=== PATIENT | male | born 1990 | race Caucasian/White ===

== ENCOUNTER 2022-02-18 11:05 | Outpatient (CLI) | payer MEDICAID | END 2022-02-18 23:59 | disposition home or self-care (01) | LOC: CARD DIAG 11:05 | PROVIDERS: ATTEND Physician Assistant | DX: E78.2 Mixed hyperlipidemia (principal); R07.89 Other chest pain | CPT/HCPCS: 93306 ==

== ENCOUNTER 2022-02-26 08:07 | Outpatient (CLI) | payer MEDICAID ==
[2022-02-26] VITALS (17 sets, daily range): BP systolic 116–171; BP diastolic 41–108
== END 2022-02-26 23:59 | disposition home or self-care (01) ==
LOC: CARD DIAG 08:07
PROVIDERS: ATTEND Physician Assistant
DX: R42 Dizziness and giddiness (principal)
CPT/HCPCS: 93660

== ENCOUNTER 2022-06-17 08:58 | Day surgery (SDC) | payer MEDICAID ==
[~2022-06-17] VITALS: Ht 185.4 cm; Wt 145.4 kg
[2022-06-17 09:05] VITALS: BP 140/97
[2022-06-17] MEDS ORDERED: ATOR20TA66 PO (09:08)
[2022-06-17] MEDS ORDERED: fentaNYL/PF 50MCG/1 ML 2ML syringe ONE (10:10)
[2022-06-17] MEDS ORDERED: MIDAZolam 1 MG/ML 5ML VIAL ONE (10:11)
[2022-06-17 11:12] VITALS: BP 132/96
[2022-06-17 11:22] VITALS: BP 136/81
[2022-06-17 11:32] VITALS: BP 132/96
== END 2022-06-17 11:50 | disposition home or self-care (01) ==
LOC: GI LAB 08:58
PROVIDERS: ATTEND Internal Medicine Gastroenterology
DX: K92.1 Melena (principal); K64.8 Other hemorrhoids; Z87.891 Personal history of nicotine dependence; Z79.899 Other long term (current) drug therapy
CPT/HCPCS: 45330; 99152; J2250; J3010; J7030; Z7512; A4620

== ENCOUNTER 2024-12-02 10:12 | Outpatient (CLI) | payer MEDICAID ==
[~2024-12-02 10:12] MED LIST: ATOR20TA66 PO
--- NOTE | 2024-12-02 15:11 | RADIOLOGY REPORT ---
ABDOMINAL ULTRASOUND CLINICAL HISTORY: ABDOMINAL PAIN TECHNIQUE: Multiple grayscale and color Doppler ultrasound images were obtained of the abdomen. WID: COMPARISON: None FINDINGS: Liver and Biliary System: Homogeneous echotexture, normal size measuring 16.0 cm. No focal hepatic observations. No intrahepatic bile duct dilatation. The common duct measures 0.3 cm at the bhavesh h epatis. The gallbladder is normal caliber with borderline wall thickening. No cholelithiasis. Pancreas: Visualized portions are grossly unremarkable. Kidneys: The right kidney is 10.0 x 4.9 x 4.8 cm . No hydronephrosis, increased echogenicity, shado wing stone, or focal lesion. Aorta: Visualized portions are normal in caliber. IMPRESSION: No acute cholecystitis or biliary ductal dilatation.
== END 2024-12-02 23:59 | disposition home or self-care (01) ==
LOC: RAD 10:12
PROVIDERS: ATTEND Family Medicine
DX: R10.9 Unspecified abdominal pain (principal)
CPT/HCPCS: 76700